=== PATIENT | male | born 1970 | race Caucasian/White ===

== ENCOUNTER 2019-09-04 03:23 | Emergency (ER) | payer MEDICAID, OTHER, SELFPAY ==
[2019-09-04 03:30] VITALS: BP 144/100; PULSE 96; RESP 20; TEMP 37.1; O2SAT 100; BMI 27.7
--- NOTE | 2019-09-04 03:33 | ED_ITS ---
HPI - General Adult General Chief complaint: Abdominal Pain Stated complaint: left side pain/ left testicle pain also Time Seen by Provider: 09/04/19 03:26 Source: patient Mode of arrival: Ambulatory Limitations: no limitations History of Present Illness HPI narrative: Patient is a 49-year-old male here for evaluation of left-sided flank, abdomen pain that is radiating to his left testicle. States the pain was fairly sudden onset last night at 1100 hours. Denies any urinary symptoms. States that the pain has been coming and going. He states that it is worse with movement and palpation. No vomiting. Has never had a kidney stone before. No rashes. Has not tried anything for symptoms prior to arrival Related Data Previous Rx's Medication Instructions Recorded hydrocodone-acetaminophen [[place]] 1 tab PO Q4-6H PRN #10 tab 09/04/19 ondansetron 4 mg PO Q6H PRN #10 tab 09/04/19 Review of Systems Constitutional Constitutional: Denies fever(s) Cardiovascular Cardiovascular: Denies chest pain and Denies dyspnea Respiratory Respiratory: Denies dyspnea Gastrointestinal Gastrointestinal: Reports abdominal pain, Reports nausea and Denies vomiting Genitourinary Genitourinary: Denies dysuria and Reports flank pain (Left) Musculoskeletal Musculoskeletal: Denies myalgias and Denies arthralgias Integumentary/Breasts Skin/Breast: Denies rash Neurologic Neurologic: Denies behavioral changes Psychiatric Psychiatric: Denies behavioral changes Hematologic/Lymphatic Hematologic/Lymphatic: Denies easy bleeding and Denies easy bruising Patient History Medical History Patient denies medical problems (Acute) Social History Smoking Status: Current every day smoker Exam Initial Vital Signs Initial Vital Signs: Vital Signs Temperature 98.7 F 09/04/19 03:30 Pulse Rate 96 H 09/04/19 03:30 Respiratory Rate 20 09/04/19 03:30 Blood Pressure 144/100 H 09/04/19 03:30 Pulse Oximetry 100 09/04/19 03:30 Const General: cooperative and No comfortable (Uncomfortable) Orientation: alert, awake and oriented x3 HENMT Head: normal to inspection and normocephalic Resp Effort & Inspection: normal respiratory effort Auscultation: clear to auscultation bilaterally Cardio Rate: regular rate Rhythm: regular rhythm GI Palpation: soft and tender (Left-sided abdomen) Back/Spine/Pelvis Back: CVA tenderness left Skin Lesions: no lesions Rashes: no rashes Neuro General: alert and awake Cognition: normal cognition Speech: speech normal Extrem General: normal to inspection and capillary refill normal Psych Appearance: grossly normal and well kempt Course Orders Ordered: ED Orders 09/04/19 03:34 CT kidney ureter bladder (KUB) Stat 09/04/19 03:39 Complete Blood Count AUTO DIFF Stat Comprehensive Metabolic Panel Stat Lipase Stat Discontinued Medications Hydrocodone Bitart/Acetaminophen ([place] 5/325) 1 tab PO NOW ONE Stop: 09/04/19 04:47 Last Admin: 09/04/19 04:54 Dose: 1 tab Documented by: CHRISTIANA Hydrocodone Bitart/Acetaminophen (Vicodin Prepack) 1 bottle MISC SEEINSTR ONE Stop: 09/04/19 04:47 Last Admin: 09/04/19 04:54 Dose: 1 bottle Documented by: CHRISTIANA Lidocaine HCl 7.1 ml/ Sodium (Chloride) 57.1 mls @ 342.6 mls/hr IV NOW ONE Stop: 09/04/19 03:35 Last Infusion: 09/04/19 04:11 Dose: 0 mls/hr Documented by: Admin: 09/04/19 03:56 Dose: 342.6 mls/hr Documented by: CHRISTIANA Ketorolac Tromethamine (Toradol) 30 mg IV NOW ONE Stop: 09/04/19 03:34 Last Admin: 09/04/19 03:56 Dose: 30 mg Documented by: CHRISTIANA Ondansetron HCl (Zofran Odt Prepack) 1 bottle MISC SEEINSTR ONE Stop: 09/04/19 04:49 Last Admin: 09/04/19 04:54 Dose: 1 bottle Documented by: CHRISTIANA Vital Signs Vital signs: Vital Signs - 8 hr 09/04/19 03:30 09/04/19 04:33 Temperature 98.7 F Pulse Rate 96 H 89 Respiratory Rate 20 14 Blood Pressure 144/100 H Blood Pressure [Left Arm] 123/91 H Pulse Oximetry 100 100 Medical Decision Making Lab Data Lab results reviewed: Yes I reviewed the patient's lab results. Result diagrams: 09/04/19 03:39 09/04/19 03:39 Labs: Lab Results 09/04/19 09/04/19 Range/Units 03:39 03:39 WBC 10.3 (4.5-11.0) X10^3/uL RBC 4.54 (4.5-5.9) X10^6/uL Hgb 14.1 (13.5-17.5) g/dL Hct 42.2 (41-53) % MCV 93.1 (80-100) fL MCH 31.0 (26-34) PG MCHC 33.3 (30-36) % RDW 13.3 (11.6-14.8) % Plt Count 229 (150-400) X10^3/uL Neut % (Auto) 76.0 H (50-75) % Lymph % (Auto) 16.7 L (25-40) % Cassia % (Auto) 5.9 (3-14) % Eos % (Auto) 0.9 L (2-4) % Baso % (Auto) 0.5 (0-2) % Neut # (Auto) 7900 H (3866-8090) /uL Lymph # (Auto) 1700 (1258-5470) /uL Cassia # (Auto) 600 (0-900) /uL Eos # (Auto) 100 (0-450) /uL Baso # (Auto) 100 (0-100) /uL Sodium 137 (137-145) mmol/L Potassium 4.1 (3.4-5.1) mmol/L Chloride 102 (98-107) mmol/L Carbon Dioxide 28 (22-32) mmol/L BUN 21 H (9-20) mg/dL Creatinine 1.30 H (0.66-1.25) mg/dL Estimated GFR 58.9 L (>60) mL/min BUN/Creatinine Ratio 16.2 (6-22) Glucose 133 H (70-100) mg/dL Calcium 9.3 (8.4-10.2) mg/dL Total Bilirubin 0.5 (0.2-1.3) mg/dL AST 50 (17-59) IU/L ALT 67 H (<50) IU/L Alkaline Phosphatase 82 (38-126) U/L Total Protein 7.9 (6.3-8.2) g/dL Albumin 4.4 (3.5-5.0) g/dL Globulin 3.5 (1.7-4.1) g/dL Albumin/Globulin Ratio 1.3 (1.0-2.8) Lipase 111 (23-300) U/L Imaging Data CT scan - abdomen: Radiologist's impression: 4 mm stone distal left ureter. This produces mild left hydronephrosis MDM Narrative Medical decision making narrative: Patient with history and physical exam consistent with a kidney stone. CT scan confirms 4 mm distal left stone. Patient somewhat improved after pain medications here in the ER. Tolerating oral intake. He is given return precautions and follow-up instructions. He expressed understanding and agreement with plan Discharge Plan Departure Patient Disposition: Home Clinical Impression: Renal colic on left side Instructions: Kidney Stones -- Adult Activity Restrictions/Additional Instructions: You do have a kidney stone on the left side. It is of a size that it should pass on its own. Take the medications as directed. Recommend that you contact your primary provider for follow-up. If you do not have a primary provider you can contact the health human resource internship at [phone] to help you establish a primary provider here in the area. Return to the emergency dep artment for any new symptoms to include fevers, worsening pain, inability to tolerate oral intake or any other concerning symptoms. Prescriptions: New ondansetron 4 mg tablet,disintegrating 4 mg PO Q6H PRN (Reason: nausea and vomiting) Qty: 10 RF: 0 hydrocodone-acetaminophen [[place]] 5-325 mg tablet 1 tab PO Q4-6H PRN (Reason: pain) Qty: 10 RF: 0
--- NOTE | 2019-09-04 03:34 | DI.CT.S_ITS ---
PROCEDURE: CT KIDNEY URETER BLADDER (KUB) INDICATIONS: Possible left-sided kidney stone TECHNIQUE: Noncontrast 5 mm thick sections acquired from the diaphragms to the symphysis. 5 mm thick coronal and sagittal reformats were then performed. For radiation dose reduction, the following was used: automated exposure control, adjustment of mA and/or kV according to patient size. COMPARISON: None. FINDINGS: Image quality: Excellent. Lung bases: Lung bases are clear. Heart size is normal. There is a left lower lobe subpleural cyst seen. Urinary system: There is an obstructing stone seen within the distal left ureter at the left ureterovesicular junction measuring 3 mm, as on series 2 image 82 and on series 4 image 37. There is associated moderate left-sided hydroureter and hydronephrosis, with prominent left-sided perinephric fat stranding. Tiny punctate nonobstructing kidney stones are seen measuring 1 mm. Both kidneys are normal in size. Exophytic from the posterior aspect of the right kidney superiorly, there is a lesion seen measuring 1.9 cm and 25 Hounsfield units. Bladder wall thickness is normal; no calcified bladder stones. Other solid organs: Liver is normal in size. Gallbladder wall does not appear thickened. Pancreas is normal in contours. Spleen is normal in size. No adrenal nodules. Peritoneum and bowel: Unenhanced bowel loops demonstrate normal wall thickness and caliber. No free fluid or air. Incidental note is made of a normal-appearing appendix. Nodes and vessels: No retroperitoneal or mesenteric adenopathy by size criteria. Aorta and inferior vena cava are normal in caliber. Abdominal wall: A mild periumbilical hernia is seen, containing fat. Pelvis: No free pelvic fluid. No inguinal hernias or adenopathy. Bones: No suspicious bony lesions. No vertebral body compression fractures. Focal T11-T12 degenerative change is seen, with milder degenerative change is seen elsewhere. Mild dextroconvex scoliotic curvature is seen. IMPRESSION: There is an obstructing 3 mm stone within the left ureterovesicular junction, with associated hydroureter and hydronephrosis. There is prominent left-sided perinephric fat stranding. Concern is raised for a calyceal rupture. Tiny nonobstructing 1 mm punctate renal stones are seen. Potential hyperdense cyst involving the right kidney posteriorly. Differential diagnosis includes a mass. Please consider a followup renal ultrasound for further evaluation. If the ultrasound does not confirm this to be a cyst, then a dedicated renal mass CT would be recommended. Incidental note is made of: Small fat containing periumbilical hernia Note: This case (including differences between this final report and the preliminary report) discussed by telephone with at 8:27 AM [place] time with Dr. Franco Dictated by: Oswald Sosa M.D. on 09/04/2019 at 7:19 Approved by: Oswald Sosa M.D. on 09/04/2019 at 7:29
[2019-09-04 03:49] LABS: Add Manual Diff / Slide Review NO; Basophils Absolute Auto 100 /uL (0-100); Basophils Percent Auto 0.5 % (0-2); Eosinophils Absolute Auto 100 /uL (0-450); Eosinophils Percent Auto 0.9 % (2-4); Hematocrit 42.2 % (41-53); Hemoglobin 14.1 g/dL (13.5-17.5); Lymphocytes Absolute Auto 1700 /uL (1100-4500); Lymphocytes Percent Auto 16.7 % (25-40); Mean Corpuscular HGB Conc 33.3 % (30-36); Mean Corpuscular Volume 93.1 fL (80-100); Monocytes Absolute Auto 600 /uL (0-900); Monocytes Percent Auto 5.9 % (3-14); Neutrophils Absolute Auto 7900 /uL (1500-7000); Platelet Count 229 X10^3/uL (150-400); Red Blood Cell Count 4.54 X10^6/uL (4.5-5.9); Red Cell Distribution Width 13.3 % (11.6-14.8); White Blood Cell Count 10.3 X10^3/uL (4.5-11.0)
[2019-09-04 03:55] LABS: Alanine Aminotransferase 67 IU/L (<50); Albumin 4.4 g/dL (3.5-5.0); Albumin Globulin Ratio 1.3 (1.0-2.8); Alkaline Phosphatase 82 U/L (38-126); Aspartate Aminotransferase 50 IU/L (17-59); BUN Creatinine Ratio 16.2 (6-22); Bilirubin Total 0.5 mg/dL (0.2-1.3); Blood Urea Nitrogen 21 mg/dL (9-20); Calcium 9.3 mg/dL (8.4-10.2); Carbon Dioxide 28 mmol/L (22-32); Chloride 102 mmol/L (98-107); Estimated Glomerular Filt Rate 58.9 mL/min (>60); Globulin 3.5 g/dL (1.7-4.1); Glucose 133 mg/dL (70-100); HEMOLYSIS 20 (0-50); Lipase 111 U/L (23-300); Potassium 4.1 mmol/L (3.4-5.1); Sodium 137 mmol/L (137-145); Total Protein 7.9 g/dL (6.3-8.2)
[2019-09-04] MEDS: LIDOCAINE 2% 7.1 ML in SODIUM CHLORIDE 0.9% 50 ML 342.6 ML IV (03:56)
[2019-09-04] MEDS: KETOROLAC 60 MG/2 ML VIAL 30 MG IV (03:56)
[2019-09-04 04:33] VITALS: BP 123/91; PULSE 89; RESP 14; O2SAT 100
[2019-09-04] MEDS: ONDANSETRON 4 MG ODT PREPACK 1 BOTTLE MISC (04:54)
[2019-09-04] MEDS: HYDROCODONE/ACET 5/325 PREPACK 1 BOTTLE MISC (04:54)
[2019-09-04] MEDS: HYDROCODONE/ACET 5/325 TABLET 1 TAB PO (04:54)
[2019-09-04 05:07] VITALS: BP 114/77; PULSE 100; RESP 16; TEMP 36.8; O2SAT 100
== END 2019-09-04 05:08 | disposition home or self-care (01) ==
PROVIDERS: Emergency Provider Emergency Medicine
DX: N20.0 Calculus of kidney (principal); N50.812 Left testicular pain
CPT/HCPCS: 36415; 74176; 80053; 83690; 85025; 96374; 96375; 99283; 99284; J1885

== ENCOUNTER 2020-12-25 16:52 | Emergency (ER) | payer MEDICAID, OTHER, SELFPAY ==
[2020-12-25 16:54] VITALS: BP 140/90; PULSE 90; RESP 22; TEMP 36.9; O2SAT 100
[2020-12-25 17:12] LABS: Bacteria Urine None Seen
[2020-12-25 17:19] LABS: Appearance Urine UA Clear
[2020-12-25 17:20] LABS: Color Urine UA Orange; Culture Indicated Urine Cult Not Indicated; Mucus Urine 1+ (Negative); RBC Urine 0-1/HPF (0-5/HPF); WBC Urine 0-1/HPF (0-5/HPF)
--- NOTE | 2020-12-25 17:57 | ED.MALEGU ---
HPI - Male Genitourinary <GHAZALA Almonte - Last Filed: 12/25/20 18:00> General Chief complaint: Urogenital-Male Stated complaint: PEEING BLOOD Time Seen by Provider: 12/25/20 17:04 Source: patient Mode of arrival: Ambulatory Limitations: no limitations History of Present Illness HPI Narrative: The patient is a 50-year-old male current everyday smoker with history of kidney stone who presents with a chief complaint of hematuria. He notes that the hematuria started immediately after taking some medication which he initially believed to be ibuprofen, later figured out was Pyridium. He denies any dysuria urgency or frequency. He states that since he started urinating after taking the Pyridium his urine has become less discolored. He states that nothing hurts ?but my pride. Related Data Previous Rx's Medication Instructions Recorded hydrocodone-acetaminophen [[place]] 1 tab PO Q4-6H PRN #10 tab 09/04/19 ondansetron 4 mg PO Q6H PRN #10 tab 09/04/19 Review of Systems <GHAZALA Almonte - Last Filed: 12/25/20 18:00> Review of Systems Narrative: GENERAL: Denies chills, fatigue, malaise, fever, sweats. HEENT: Denies sinus pain, ear pain, sore throat, difficulty swallowing, dizziness. RESPIRATORY: Denies dyspnea, cough, wheezing, hemoptysis, sputum. CARDIOVASCULAR: Denies chest pain, palpitations, orthopnea, edema, GASTROINTESTINAL: Denies nausea, vomiting, abdominal pain, diarrhea, constipation, melena. : See HPI MUSCULOSKELETAL: denies weakness, joint pain, or bony pain SKIN: Denies rash, skin lesions, or other NEUROLOGIC: Denies weakness, headache, numbness, change in speech, confusion, seizures, incoordination. PSYCHIATRIC: No concerning psychosocial issues. 12 point review of systems is negative except for those stated above Patient History <GHAZALA Almonte - Last Filed: 12/25/20 18:00> Medical History (Updated 12/25/20 @ 17:56 by GHAZALA Almonte) Patient denies medical problems Social History Smoking Status: Current every day smoker Smoking Status: Current every day smoker tobacco type: cigarettes alcohol intake frequency: a few times a month Alcohol type: beer Substance Use Type: marijuana and other Exam <GHAZALA Almonte - Last Filed: 12/25/20 18:00> Narrative Exam Narrative: GENERAL: This is a well-nourished, well-developed patient, in no acute HEAD: Atraumatic. Normocephalic. No temporal or scalp tenderness. EYES: Pupils equal round and reactive. Extraocular motions intact. No scleral icterus. No injection or drainage. ENT: Nose without bleeding, purulent drainage or septal hematoma. Wearing a mask. Airway patent. NECK: Trachea midline. No JVD or lymphadenopathy. Supple, nontender, no meningeal signs. CARDIOVASCULAR: Regular rate and rhythm RESPIRATORY: Clear to auscultation. Breath sounds equal bilaterally. No wheezes, rales, or rhonchi. No cough. No increased respiratory effort. No accessory muscle use. GASTROINTESTINAL: Abdomen soft, non-tender, nondistended. No hepato-splenomegaly, or palpable masses. No guarding. EXTREMITIES: No clubbing, cyanosis, or edema. No joint tenderness, effusion, or edema noted. BACK: Nontender without deformity or crepitance. No CVA tenderness bilaterally NEURO: AOx3. SKIN: No rash or erythema on visible skin Initial Vital Signs Initial Vital Signs: Vital Signs Temperature 98.4 F 12/25/20 16:54 Pulse Rate 90 12/25/20 16:54 Respiratory Rate 22 12/25/20 16:54 Blood Pressure 140/90 12/25/20 16:54 Pulse Oximetry 100 12/25/20 16:54 <Lacey Cavazos DO - Last Filed: 12/25/20 19:44> Initial Vital Signs Initial Vital Signs: Vital Signs Temperature 98.4 F 12/25/20 16:54 Pulse Rate 90 12/25/20 16:54 Respiratory Rate 22 12/25/20 16:54 Blood Pressure 140/90 12/25/20 16:54 Pulse Oximetry 100 12/25/20 16:54 Course <GHAZALA Almonte - Last Filed: 12/25/20 18:00> Orders Ordered: ED Orders 12/25/20 17:11 Urinalysis and Microscopic Stat Vital Signs Vital signs: Vital Signs - 8 hr 12/25/20 16:54 Temperature 98.4 F Pulse Rate 90 Respiratory Rate 22 Blood Pressure 140/90 Pulse Oximetry 100 <Lacey Cavazos DO - Last Filed: 12/25/20 19:44> Orders Ordered: ED Orders 12/25/20 17:11 Urinalysis and Microscopic Stat Vital Signs Vital signs: Vital Signs - 8 hr 12/25/20 16:54 Temperature 98.4 F Pulse Rate 90 Respiratory Rate 22 Blood Pressure 140/90 Pulse Oximetry 100 MDM - Male Genitourinary <ALLY Almonte-BC - Last Filed: 12/25/20 18:00> Lab Data Labs: Lab Results 12/25/20 Range/Units 17:11 Urine Color [place] Urine Appearance Clear Urine pH TNP Ur Specific [place] TNP Urine Protein TNP Urine Glucose (UA) TNP Urine Ketones TNP Urine Occult Blood TNP Urine Nitrate TNP Urine Bilirubin TNP Urine Urobilinogen TNP Ur Leukocyte Esterase TNP Urine RBC 0-1/hpf (0-5/HPF) Urine WBC 0-1/hpf (0-5/HPF) Urine Bacteria None seen (None) Urine Mucus 1+ H (Negative) Ur Culture Indicated? Cult not indicated Micro UA Comment Azo pyridium present MDM Narrative Medical decision making narrative: The patient is a 50-year-old male who presents with a chief complaint of hematuria. He does note that he meant to take ibuprofen, but instead took Pyridium. This is likely the cause of his urine discoloration. Urinalysis confirms no hematuria. I discussed at length follow up with primary care provider, return to the emergency department for any acute concerns. Patient has no questions or concerns upon discharge states understanding return precautions as well as follow-up care. I did encourage him to ensure that he is taking intended medications, as the side effect of urine discoloration of Pyridium likely brought him to the emergency department today. <Lacey Cavazos DO - Last Filed: 12/25/20 19:44> Lab Data Labs: Lab Results 12/25/20 Range/Units 17:11 Urine Color [place] Urine Appearance Clear Urine pH TNP Ur Specific [place] TNP Urine Protein TNP Urine Glucose (UA) TNP Urine Ketones TNP Urine Occult Blood TNP Urine Nitrate TNP Urine Bilirubin TNP Urine Urobilinogen TNP Ur Leukocyte Esterase TNP Urine RBC 0-1/hpf (0-5/HPF) Urine WBC 0-1/hpf (0-5/HPF) Urine Bacteria None seen (None) Urine Mucus 1+ H (Negative) Ur Culture Indicated? Cult not indicated Micro UA Comment Azo pyridium present Discharge Plan Departure Patient Disposition: Home Clinical Impression: Urine discoloration Instructions: Blood in Urine Activity Restrictions/Additional Instructions: Thank you for trusting us with your care today As discussed, it is apparent that you took Pyridium instead of ibuprofen. Pyridium can make your urine orange in color. Please be sure that you are taking the intended medications when you take your medications Please come back to the emergency department for any acute concerns I have given you contact information to the [facility] health learning support resource room teacher in case you need help getting a primary care provider. Prescriptions: No Action ondansetron 4 mg tablet,disintegrating 4 mg PO Q6H PRN (Reason: nausea and vomiting) Qty: 10 RF: 0 hydrocodone-acetaminophen [[place]] 5-325 mg tablet 1 tab PO Q4-6H PRN (Reason: pain) Qty: 10 RF: 0 Referrals: [facility] [Outside] <Lacey Cavazos DO - Last Filed: 12/25/20 19:44> Cosign ED Attending Raul Attestation: I was immediately available in the department for consultation. Documentation has been reviewed. I agree with assessment and plan.
== END 2020-12-25 17:59 | disposition home or self-care (01) ==
PROVIDERS: Emergency Provider Nurse Practitioner Family
DX: R31.9 Hematuria, unspecified (principal)
CPT/HCPCS: 81001; 99281; 99282